=== PATIENT | female | born 1955 | race Caucasian/White ===

== ENCOUNTER 2018-01-31 07:24 | Day surgery (SDC) | END 2018-01-31 16:12 | disposition home or self-care (01) ==

== ENCOUNTER 2018-08-17 19:37 | Emergency (ER) | END 2018-08-17 23:54 | disposition home or self-care (01) ==

== ENCOUNTER 2018-08-20 17:03 | Emergency (ER) | END 2018-08-20 20:04 | disposition home or self-care (01) ==

== ENCOUNTER 2018-09-26 19:52 | Emergency (ER) | END 2018-09-27 01:18 | disposition home or self-care (01) ==

== ENCOUNTER 2019-04-29 18:24 | Emergency (ER) | payer SELFPAY ==
[~2019-04-29] VITALS: Ht 165.1 cm; Wt 101.6 kg
[~2019-04-29 18:24] MED LIST: HYDR-4011 PO
[2019-04-29 18:54] VITALS: BP 164/89; PULSE 71; RESP 16; Ht 165.1 cm; Wt 101.6 kg
== END 2019-04-29 22:30 | disposition left against medical advice (07) ==
LOC: E/R 18:24
DX: Z53.21 Procedure and treatment not carried out due to patient leaving prior to being seen by health care provider (principal)